=== PATIENT | female | born 1985 | race Caucasian/White ===

== ENCOUNTER 2017-09-26 08:29 | Emergency (ER) | payer MEDICAID ==
[~2017-09-26] VITALS: Wt 77.1 kg
[2017-09-26] MEDS ORDERED: AMOX500C2 PO (08:38)
--- NOTE | 2017-09-26 09:31 | ERD ---
ER Documentation Chief Complaint Chief Complaint THROAT PAIN HPI 31-year-old female, otherwise healthy presenting with a chief complaint of pharyngitis. Describes fever. Ibuprofen with minimal to moderate relief. Denies cough, difficulty breathing, dysphagia, change in voice, drooling, fatigue, oral swelling, ear pain, or meningismus. Patients vaccination status is up to date. Patient has no other complaints and describes no other associated manifestations. Nursing notes have been reviewed and are consistent with history given. ROS All systems reviewed and are negative except as per history of present illness. Medications Home Meds Active Scripts Amoxicillin* (Amoxicillin*) 500 Mg Cap, 500 MG PO TID for 10 Days, CAP Prov:AGUEDA JOHNSON PA-C 09/26/17 Allergies Allergies: Coded Allergies: No Known Allergy (Unverified , 06/06/15) PMhx/Soc Hx Respiratory Disorders: Yes (asthma) Hx Miscellaneous Medical Probl: Yes (high cholesterol) Hx Alcohol Use: No Hx Tobacco Use: No Smoking Status: Never smoker Physical Exam Vitals Vital Signs Date Time Temp Pulse Resp B/P Pulse Ox O2 Delivery O2 Flow Rate FiO2 09/26/17 08:30 98.2 72 17 120/58 98 Physical Exam Const: Healthy-appearing, well-nourished, well-developed, no acute distress. Throat: Erythematous oropharynx with exudates visualized bilaterally. Tonsils within normal limits. Moist mucous membranes. Neck: Tender anterior cervical lymphadenopathy palpated bilaterally. No posterior cervical lymphadenopathy, masses or goiter palpated. Trachea midline. Full range of motion. Supple. ~ No meningismus. Skin: No petechiae or rashes. No ulcer, induration, jaundice. Good turgor. Resp: No dyspnea, stridor, tripoding or drooling. Good air movement. Clear to auscultation bilaterally. Head: Normocephalic, Atraumatic. Eyes: Non-injected; No scleral erythema, discharge or foreign body. EOMI bilaterally. PERRLA. Ears: Normal External Ears, EACs clear, TM normal bilaterally without erythema. Nose: Normal nose without discharge, septal deviation, or sinus tenderness. Cardio: Regular rate and rhythm; No murmurs, gallops or rubs auscultated. No JVD grossly observed. Radial and posterior tibial pulses 2+ bilaterally. Capillary refill less than 2 seconds. Abd: Soft, non tender, non distended. No guarding, masses. Normal bowel sounds. No McBurney's point tenderness. MS: Normal motor strength, normal tone with gross examination. Back: No midline, flank or CVA tenderness. Ext: No cyanosis, edema or palpable cord. Normal movement of all extremities grossly observed. Neur: Awake, alert and oriented x3. Neurovascularly intact bilaterally. Psych: Normal Mood and Affect. Procedures/MDM Patient was evaluated and worked up for pharyngitis presenting as described in the history and physical exam. The patient has a [place] Criteria of 4 out of 5. The current most likely diagnosis is group B streptococcal pharyngitis VS viral pharyngitis. The treatment plan will thus include out-patient antibiotics and supportive measures. At this time I do not suspect diphtheria, Lexy-Reyes virus, peritonsillar abscess, epiglottitis, retropharyngeal abscess, parapharyngeal abscess, or allergic reaction. I no longer have suspicion for endangerment of the airway. I have spoke with the patients regarding their condition and future management. They have verbally responded that they understand and agree with their status and treatment plan. The patients vitals are stable, and their current condition is appropriate for discharge. The patient will be given discharge instructions with return precautions. Departure Diagnosis: Primary Impression: Strep pharyngitis Condition: Stable Patient Instructions: Pharyngitis, Strep (Presumed) Additional Instructions: Jannette un seguimiento con peña PCP dentro de los prximos 1-3 marin para [place] evaluaci n ms completa y [place] posible derivacin a un especialista. Devuelva el departamento de emergencia inmediatamente si los sntomas empeoran o cambian. Si tiene alguna pregunta con respecto a los medicamentos, consulte con peña farmac utico o con nosotros antes de salir. Si se producen reacciones adversas mientras janell jason medicamentos, suspenda el tratamiento y regrese inmediatamente al servicio de urgencias. [place] jason medicamentos segn las indicaciones y complete el curso completo del tratamiento. AGUEDA JOHNSON PA-C Sep 26, 2017 09:31
== END 2017-09-26 09:00 | disposition home or self-care (01) ==
LOC: FTE 08:29
DX: J02.0 Streptococcal pharyngitis (principal); J45.909 Unspecified asthma, uncomplicated
CPT/HCPCS: 99283